=== PATIENT | male | born 1990 | race Caucasian/White ===

== ENCOUNTER 2019-03-14 17:52 | Emergency (ER) | payer BC ==
[~2019-03-14] VITALS: Ht 175.3 cm; Wt 74.8 kg
[~2019-03-14 17:52] MED LIST: ALLERCLEAR10 MG; BACTRIM DS TAB1 EACH PO; NORCO 5-325 TA1 EACH PO; ZOFRAN4 MG PO
[2019-03-14] MEDS ORDERED: OMEPRAZOLE10 MG PO (18:18)
[2019-03-14] MEDS ORDERED: HYDROXYZINE HCL25 M1 PO (18:19)
[2019-03-14 18:45] LABS: ABSOLUTE BASOPHILS 0.1 thou/uL (0.0-0.2); ABSOLUTE EOSINOPHILS 0.2 thou/uL (0.0-0.7); ABSOLUTE LYMPHOCYTES 3.1 thou/uL (0.8-5.3); ABSOLUTE MONOCYTES 0.3 thou/uL (0.0-1.2); ABSOLUTE NEUTROPHILS 2.6 thou/uL (1.6-8.1); BASOPHILS 0.9 %; EOSINOPHILS 3.8 %; HEMOGLOBIN 13.3 gm/dL (14.0-18.0); LYMPHOCYTES 48.7 %; MCH 29.6 pg (26.0-34.0); MCHC 33.3 g/dL (28.0-37.0); MONOCYTES 5.5 %; MPV 8.9 fl. (7.2-11.1); NUCLEATED RBCS 0 /100WBC; PLATELET COUNT* 166 thou/uL (150-400); POLYS 41.1 %; RDW-CV 14.3 % (10.5-14.5); WBC 6.3 thou/uL (4.0-11.0)
[2019-03-14 18:50] LABS: CREATININE 0.9 mg/dL (0.6-1.3)
[2019-03-14 18:54] LABS: ALBUMIN 4.2 g/dL (3.4-5.0); TOTAL BILIRUBIN 0.7 mg/dL (<0.1-1.0); TOTAL PROTEIN 7.4 g/dL (6.4-8.2)
[2019-03-14 20:19] VITALS: BP 97/51
== END 2019-03-14 20:19 | disposition home or self-care (01) ==
LOC: M.ERS 17:52
PROVIDERS: Nurse Practitioner Family
DX: R10.11 Right upper quadrant pain (principal)